=== PATIENT | female | born 1985 | race Two or more races ===

== ENCOUNTER 2022-01-31 21:27 | Emergency (ER) | payer OTHER, SELFPAY ==
--- NOTE | ~2022-01-31 | XR_ITS ---
EXAMINATION: XR WRIST, LEFT CLINICAL INFORMATION: Trauma. Pain. Deformity. COMPARISON: None TECHNIQUE: Four views of the left wrist. FINDINGS: The bones and soft tissues are normal. No fracture. Alignment is anatomic with normal joint spaces. No erosions or abnormal soft tissue calcifications. XR/XR wrist LT min 3V IMPRESSION: Normal left wrist.
--- NOTE | ~2022-01-31 | XR_ITS ---
EXAMINATION: XR HAND, LEFT CLINICAL INFORMATION: Hand injury COMPARISON: Wrist radiographs 01/31/2022 TECHNIQUE: PA, lateral, and oblique views of the left hand. FINDINGS: Osseous alignment is anatomic. No acute fracture is seen. No significant focal soft tissue abnormality identified. XR/XR hand LT 2V IMPRESSION: No acute findings identified.
[2022-01-31 22:01] VITALS: BP 136/73; PULSE 73; RESP 18; TEMP 37.2; O2SAT 99; BMI 35.1
[2022-01-31] MEDS: Ibuprofen 600 MG TABLET PO (22:04)
--- NOTE | 2022-01-31 22:07 | PC.NURSE ---
Jasmyn ring and yellow bracelet removed and placed into a specimen cup/cover. given to patient and placed inside her purse.
--- NOTE | 2022-02-01 01:05 | ED.EXTPRO ---
HPI - Extremity Problem General Chief complaint: Extremity Injury, Upper Stated complaint: left wrist painful and swollen Time Seen by Provider: 02/01/22 01:04 Source: patient Mode of arrival: ambulatory Limitations: no limitations History of Present Illness HPI Narrative: 36-year-old female came in for evaluation of left hand/left wrist pain. Happened at work when she was lifting heavy pocket of ice felt pain initially in the left wrist which is progressively getting worse and spreading to the left hand, patient still able to move the left hand and wrist with pain, patient also noted a small growth over radial side of the left wrist since yesterday. Patient is right hand dominant. Related Data Allergies Allergy/AdvReac Type Severity Reaction Status Date / Time No Known Drug Allergies Allergy Unknown UNKNOWN Verified 01/31/22 22:02 Review of Systems Review of Systems: All other systems are reviewed and are negative Constitutional: Reports as per HPI and Reports no additional constitutional complaints Eyes: Reports as per HPI and Reports no additional eye complaints Reports system reviewed and no additional complaints, except as documented Cardiovascular: Reports as per HPI and Reports no additional cardiovascular complaints Respiratory: Reports as per HPI and Reports no additional respiratory complaints Gastrointestinal: Reports as per HPI and Reports no additional gastrointestinal complaints Genitourinary: Reports no additional female genitourinary complaints Musculoskeletal: Reports no additional musculoskeletal complaints Skin/Breast: Reports system reviewed and no additional complaints, except as docu Psychiatric: Reports no additional psychiatric complaints Endocrine: Reports no additional endocrine complaints Hematologic/Lymphatic: Reports no additional hematologic/lymphatic complaints Allergic/Immunologic: Reports no additional allergic/immunologic complaints Reports system reviewed and no additional complaints, except as documented and Reports Abnormal speech present Physical Exam Vital Signs: Vital Signs: Last Vital Signs Temp 98.9 F 01/31/22 22:01 Pulse 73 01/31/22 22:01 Resp 18 01/31/22 22:01 BP 136/73 01/31/22 22:01 Pulse Ox 99 01/31/22 22:01 O2 Del Method 01/31/22 22:01 BMI result Body Mass Index 35.1 Vital signs have been reviewed as appeared to be correct. Blood pressure normal. Heart rate normal. Respiration rate normal. Temperature normal. Oxygen saturation normal. Appearance: Alert. Oriented X3. No acute distress. Head: Normal external exam. Normocephalic. Atraumatic. No Thayer signs noted. No raccoon eyes noted Eyes: PERRLA. EOMI. Conjunctiva and sclera normal. Eyelids normal. ENT: TM's Normal. Pharynx normal. Uvula midline. Moist mucous membranes. No trismus noted. No drooling noted. No muffled voice noted. Neck: Normal inspection. Neck supple. FROM. No adenopathy. Thyroid Normal. No meningeal signs. No neck mass noted. CVS: Normal heart rate and rhythm. Heart sound normal. No murmurs noted. Pulses normal throughout. Respiratory: No respiratory distress. Painless inspiration. Breath sounds normal. No wheezes/rales/rhonchi noted. Chest nontender. No accessory muscle usage noted or decreased air movement noted. Abdomen: Soft and nontender. Bowel sounds normal in all 4 quadrants. No distention noted. No organomegaly noted. No visible injury noted. Back: No CVA tenderness. Full range of motion noted. Skin: Skin warm and dry. Normal skin color. Normal skin turgor. No rashes/lesions/lacerations noted. Extremities: 2 x 2 cm bony firm mass on dorsum aspect of the radial side of the left wrist, mildly tender to touch, no deformity, normal radial pulse. Neuro: Oriented X 3. Cranial nerve exam: II-XII are grossly intact No motor deficit. No sensory deficit. Reflexes normal. Course Course Course Narrative: 36-year-old female came in with left wrist/left hand pain after injury at work. No acute fracture on the x-ray, 2 x 2 small bony structure felt at the dorsum and radial aspect of the left wrist which may represent ganglion cyst. Ice, NSAIDs, follow-up with hand surgeon. Discharge Plan Discharge Clinical Impression: Contusion of hand, left Patient Disposition: Home, Self-Care Instructions: Contusion in Adults (ED) Referrals: Sue Gonzalez MD [Physician] - Stand Alone Forms: Work/School Release
== END 2022-02-01 04:28 | disposition home or self-care (01) ==
PROVIDERS: Emergency Provider Emergency Medicine
DX: S60.222A Contusion of left hand, initial encounter (principal); M25.532 Pain in left wrist; X50.0XXA Overexertion from strenuous movement or load, initial encounter; Y93.9 Activity, unspecified; Y92.9 Unspecified place or not applicable; Y99.0 Civilian activity done for income or pay
CPT/HCPCS: 73110; 73120; 99283

== ENCOUNTER → 2022-03-07 13:52 | Outpatient (BNVA) | payer OTHER, SELFPAY | PROVIDERS: Visit Provider Orthopaedic Surgery | DX: M65.4 Radial styloid tenosynovitis [de Quervain] (principal); M67.432 Ganglion, left wrist | CPT/HCPCS: 20550; 99202; J1100 ==

== ENCOUNTER 2022-04-17 14:02 | Outpatient (REF) | payer OTHER, SELFPAY ==
--- NOTE | ~2022-04-17 | XR_ITS ---
EXAMINATION: XR WRIST, LEFT CLINICAL INFORMATION: Left wrist pain. COMPARISON: 04/02/2022 TECHNIQUE: PA, lateral, and oblique views of the left wrist. FINDINGS: There is no evidence of acute fracture or dislocation of the left wrist. Left wrist joint spaces are maintained. About the radial soft tissues of the distal radius, there appears be a circumscribed 1.7 x 1.2 cm soft tissue density with no adjacent bony abnormality appreciated. If clinically indicated, ultrasound examination may be of help in further evaluation. XR/XR wrist LT min 3V IMPRESSION: No bony abnormality of the left wrist identified. Soft tissue density radial aspect for which ultrasound would be of help in further evaluation.
== END 2022-04-17 14:03 | disposition home or self-care (01) ==
LOC: HO.HOSX 14:02
PROVIDERS: Visit Provider Orthopaedic Surgery
DX: M25.532 Pain in left wrist (principal)
CPT/HCPCS: 73110

== ENCOUNTER → 2022-04-18 11:12 | Outpatient (BNVA) | payer OTHER, SELFPAY | PROVIDERS: Visit Provider Orthopaedic Surgery | DX: M25.532 Pain in left wrist (principal); M65.4 Radial styloid tenosynovitis [de Quervain]; M67.432 Ganglion, left wrist | CPT/HCPCS: 99212 ==

== ENCOUNTER 2022-04-22 09:14 | Emergency (ER) | payer OTHER, SELFPAY ==
[2022-04-22 09:43] VITALS: BP 122/79; PULSE 67; RESP 18; TEMP 35.8; O2SAT 98; BMI 36.7
[2022-04-22] MEDS: Ibuprofen 600 MG TABLET PO (09:51)
--- NOTE | 2022-04-22 11:21 | ED_ITS ---
HPI - General Adult General Chief complaint: General Medical Stated complaint: lower back pain Time Seen by Provider: 04/22/22 11:02 Source: patient Mode of arrival: ambulatory Limitations: no limitations History of Present Illness HPI narrative: 36 yo female w/ no significant PMHx presenting w/ a 4 day hx of pain in the left lower back. She states that she woke up w/ the pain on morning w/o recollection of any inciting injury or event. She states that the pain feels dull and constant in the left gluteal region that gets worse w/ twist, squatting, bending, and sitting down. She has tried ibuprofen and Tylenol w/o relief of symptoms. She denies any recent or prior injury, trauma, or surgery to this area. She denies any radiation of pain down her leg or up into her back. She denies other symptoms recent fevers, chills, abd pain, N/V/D, changes in bowel or bladder function, headache, neck pain, chest pain, SOB, lightheadedness, or dizziness. She endorses occasional use of marijuana but denies other drug or alcohol use. Onset (ago): day(s) (4) Location: buttocks (left gluteal region) Radiation: non-radiation Severity: mild Severity scale (1-10): 2 Quality: aching and dull Pain Consistency: constant Relieving factors: none Associated symptoms: denies other symptoms Treatments prior to arrival: other (Tylenol) Related Data Home Medications Medication Instructions Recorded Confirmed No Known Home Meds 03/07/22 03/07/22 Allergies Allergy/AdvReac Type Severity Reaction Status Date / Time No Known Drug Allergies Allergy Unknown UNKNOWN Verified 04/18/22 11:47 Review of Systems Review of Systems: Constitutional: No Weight loss, No Fever, No Chills, No Headaches, No dizziness, No lightheadedness ENT/Mouth: No Ear Pain, No Nasal Congestion, No sore throat Cardiovascular: No Chest Pain, No SOB Respiratory: No Cough, No difficulty breathing Gastrointestinal: No Nausea, No Vomiting, No Diarrhea, No Constipation, No Abdominal pain, No loss of bowel control Genitourinary: No Dysuria, No Urinary Frequency, No Hematuria, No Urinary Incontinence/retention, No Urgency, No Flank Pain Musculoskeletal: No joint pain, No Myalgias, No Joint Swelling, + Left gluteal pain as per HPI Skin: No Skin Lesions, No rash Neuro: No Weakness, No Numbness, No Paresthesias Yes all other systems are reviewed and are negative Constitutional: Constitutional: Reports as per HPI Neurologic: Denies Sensory deficit (Neuro) [facility] Past Medical History Attestation statement: The following information was validated with the patient. Social History Social History Alcohol intake: never Smoked in Last 30 Days: No Substance Use Type: Marijuana Advance Directives: No Advance Directives Information Provided: No Patient : No Current occupational status: employed Current occupation: right hand, [email or web address] Physical Exam ED Vital Signs: Vital Signs - 24 hr 04/22/22 09:43 Temperature 96.5 F L Pulse Rate 67 Respiratory Rate 18 Blood Pressure 122/79 Pulse Oximetry 98 Oxygen Delivery Method Room Air BMI result Body Mass Index 36.7 Const Other: in pain General: cooperative, healthy appearing and anxious Orientation/consciousness: patient oriented x3 Limitations: no limitations HENMT Head: Yes normal to inspection and Yes atraumatic Ears: hearing grossly normal bilaterally Eyes General: appearance normal, both eyes and all related structures Neck Neck: Yes normal visual inspection and Yes no meningeal signs Resp Effort & Inspection: normal respiratory effort, able to speak in complete sentences, normal respiratory pattern, no audible wheezes, no cough and no respiratory distress Auscultation: clear to auscultation bilaterally Cardio Rate: regular rate Heart sounds: S1 normal heart sound present and S2 normal heart sound present GI Inspection: Yes normal to inspection Palpation (GI): Soft to palpation, not firm, nontender, no guarding, not rigid and no masses General: Yes bladder normal to palpation and Yes no CVA tenderness Bimanual exam- vagina & uterus: bladder normal to palpation Back/Spine/Pelvis Back: no CVA tenderness, No mass, No erythema, No warmth, No sacral edema, No ecchymosis and No back tenderness Cervical Spine: No cervical muscular tenderness and No Cervical spine tenderness Thoracic/Lumbar Spine: No paraspinal muscle tenderness and No lumbar spinal tenderness Sacrum: no ecchymosis, no erythema, no swelling and no tenderness Coccyx: no swelling and no tenderness Skin General skin exam: no rashes or lesions noted Rashes: no rashes Wounds: no wounds Neuro General: patient oriented x3, gait normal, tone normal and no meningeal signs Gait exam (Neuro): Normal gait present Motor exam (neuro): 5/5 motor strength present throughout Sensory Exam: No Sensory deficit (Neuro) Extrem General: Yes normal to inspection and Yes full ROM (painful flexion/extension of hip) Right upper extremity: normal to inspection Left upper extremity: normal to inspection Right lower extremity: normal to inspection Left lower extremity: normal to inspection and hip/thigh Details: normal to inspection and tenderness (tenderness over left gluteal/lateral hip region); no swelling, no abrasions, no lacerations, no ecchymosis and no crepitus Course Course Course Narrative: > 1330--patient reports symptomatic improvement after medications given in the ED. Still reports some continued pain, will give oxycodone and plan for discharge. Results discussed with patient including worrisome signs and symptoms and strict return precautions, and when to return to the emergency department. They verbalized understanding and feel safe for discharge at this time. Medications Administered Discontinued Medications Generic Name Dose Route Start Last Admin Trade Name Twin PRN Reason Stop Dose Admin Acetaminophen 650 mg 04/22/22 11:42 04/22/22 12:00 Acetaminophen 325 Mg Tablet PO 04/22/22 11:43 650 mg ONCE ONE Administration Cyclobenzaprine HCl 10 mg 04/22/22 11:41 04/22/22 12:00 Cyclobenzaprine Hcl 10 Mg Tablet PO 04/22/22 11:42 10 mg ONCE ONE Administration Ibuprofen 600 mg 04/22/22 09:48 04/22/22 09:51 Ibuprofen 600 Mg Tablet PO 04/22/22 09:49 600 mg ONCE ONE Administration Lidocaine 1 patch 04/22/22 11:41 04/22/22 12:00 Lidocaine 4 % Patch Adh..Patch TRANSDERMA 04/22/22 11:42 1 patch ONCE ONE Administration Protocol Oxycodone HCl 5 mg 04/22/22 13:27 04/22/22 13:33 Oxycodone Hcl Immed Release 5 Mg Tablet PO 04/22/22 13:28 5 mg ONCE ONE Administration Medical Decision Making [facility] Narrative Medical decision making narrative: 36 yo female w/ no significant PMHx presenting w/ a 4 day hx of atraumatic pain in the left lower back. On exam vital signs stable, appears in pain, anxious, tearful, no midline spinous tenderness throughout or red flag symptoms. + tenderness to palpation to left gluteal region. No saddle anesthesia. Ambulating with pain/steady gait. Concern for MSK pain/strain vs muscle spasming. Low suspicion for fracture, cauda equina, cord compression, epidural abscess or renal stone/pyelo Plan: Ibuprofen given in triage, p.o. Flexeril, Lidoderm patch, re-evaluate Medical Records Medical records reviewed: Yes I reviewed the patient's medical records. Lab Data Lab results reviewed: Yes I reviewed the patient's lab results. Discharge Plan Discharge Clinical Impression: Low back pain Patient Disposition: Home, Self-Care Prescriptions: No Action No Known Home Meds
[2022-04-22] MEDS: Lidocaine 4 % Patch ADH..PATCH 1 PATCH TRANSDERMA (12:00)
[2022-04-22] MEDS: Cyclobenzaprine HCl 10 MG TABLET PO (12:00)
[2022-04-22] MEDS: Acetaminophen 325 MG TABLET 650 MG PO (12:00)
--- NOTE | 2022-04-22 12:07 | PC.NURSE ---
patient a/ox4 . dmitrya . heart rate regular at 70 beats per minute . breathing even an unlabored . lungs clear throughout . skin pink warm and dry patient reports lower left back pain 8 out of 10 , no bruising or trauma noted . patient medicated as ordered by provider . lidocaine patch applied to left lower back . patient aware of plan of care .
[2022-04-22] MEDS: oxyCODONE HCl Immed Release 5 MG TABLET PO (13:33)
== END 2022-04-22 14:23 | disposition home or self-care (01) ==
PROVIDERS: Emergency Provider Emergency Medicine
DX: M54.50 Low back pain, unspecified (principal)
CPT/HCPCS: 96372; 99284

== ENCOUNTER → 2022-05-30 10:26 | Outpatient (BNVA) | payer OTHER, SELFPAY | PROVIDERS: Visit Provider Orthopaedic Surgery | DX: M65.4 Radial styloid tenosynovitis [de Quervain] (principal); M67.432 Ganglion, left wrist | CPT/HCPCS: 99212 ==

== ENCOUNTER 2022-06-18 05:47 | Day surgery (SDC) | payer OTHER, SELFPAY ==
[2022-06-12 13:53] VITALS: BMI 36.7
[2022-06-18 06:10] VITALS: BP 111/66; PULSE 67; RESP 16; TEMP 36.2; O2SAT 97
--- NOTE | 2022-06-18 07:19 | HO.ANESPROP2 ---
HPI - Anesthesia Eval Consult details Narrative: Lleft wrist gg cyst PMFSH Active Problems Active Problems: All Active Problems (Updated 06/12/22 @ 13:41 by Clarisa Ma, RN) De Quervain's tenosynovitis, left (Acute) Ganglion cyst of volar aspect of left wrist (Acute) Past Medical History Medical History (Updated 06/12/22 @ 13:41 by Clarisa Ma, RN) Asthma Functional capacity: independent ambulation Family History Family history of problems with anesthesia: No Surgical History Surgical History (Updated 06/12/22 @ 13:41 by Clarisa Ma, PAUL) History of bilateral tubal ligation Hx of section History of Problems with Anesthesia: No Social History Social History Alcohol intake: never Patient Tobacco Use Status: Never used Tobacco Second Hand Smoke Exposure: No Use of substances other than those prescribed or required for medical reasons: Yes Substance Use Type: Marijuana Substance Use Frequency: Occasionally Are you DNR?: No Advance Directives: No Advance Directives Information Provided: Yes Advance Directives on File: No Current occupational status: employed Current occupation: right hand, [employer] maker Meds Allergies Allergy/AdvReac Type Severity Reaction Status Date / Time No Known Drug Allergies Allergy Unknown UNKNOWN Verified 06/12/22 13:42 Exam Exam Date and Time: June 18, 2022 0719 Height,Weight and Vital Signs: Height 5 ft 2 in Weight 91.172 kg Last Vital Signs Temp 97.1 F 06/18/22 06:10 Pulse 67 06/18/22 06:10 Resp 16 06/18/22 06:10 BP 111/66 06/18/22 06:10 Pulse Ox 97 06/18/22 06:10 O2 Del Method 06/18/22 06:10 Airway Mallampati Class: II TM Dist: >3cm Neck ROM: Full Heart: rrr Lungs: cta Assessment and Plan Assessment Anesthesia Assessment: Anesthesia Plan Discussed Final Anesthetic Review Family History of Problems with Anesthesia: No History of Problems with Anesthesia: No NPO: Yes ASA Class: II Final Preanesthetic Review: No Changes in Pt Med Stat, Meds/Allgs Chart Reviewed, Consent Obtained/Reviewed and Anes Risks/Benef Reviewed Patient Risk: Low Procedure Risk: Low Anesthetic Plan Anesthetic Plan: GA and Agree w/ Assess. and Plan Disposition: Standard PACU
--- NOTE | 2022-06-18 07:49 | P.OP_ITS ---
Operative Note Operative Note Date of Service: 06/18/22 Narrative: Operative Note Narrative: Preop diagnosis: 1. left Volar wrist ganglion 2. Left de Quervain tenosynovitis Postop diagnosis: Same Procedure: 1. left Volar wrist ganglion excision 2. Left 1st dorsal compartment release 3. Dissection and mobilization of the radial artery off of the volar wrist ganglion. Surgeon: Sue Gonzalez MD Anesthesia: General Anesthesia Findings: volar wrist ganglion. EPB tendon in its own compartment Implants: None Tourniquet time: 28 minutes EBL: 5.0 ml Specimen: Volar wrist ganglion Drains: None Complications: None Disposition: Brought to the recovery room in stable condition Plan: Follow-up in 10-14 days for wound check, suture removal and to check pathology Indications: The patient is 36 years old with left de Quervain tenosynov itis and left volar wrist ganglion . The risks and benefits of operative treatment, including but not limited to risk of damage to blood vessels, nerves, tendons, infection, recurrence, persistent pain or numbness, incomplete resolution of preoperative symptoms, or need for further surgery were discussed with the patient and they wished to proceed with surgery. Procedure: Once consent was obtained patient was brought back to the operating suite and placed in the operating table in a supine position. Perioperative antibiotics and anesthesia was administered by the anesthesia team. A kezia rniquet was applied to the proximal aspect of the left upper extremity and the limb was prepped and draped in a standard surgical fashion. The limb was elevated exsanguinated with Esmarch bandage and the tourniquet inflated to 250 mm of mercury for a total tourniquet time of 28 minutes. A 3 cm longitudinal incision was made beginning at the radial styloid extending proximally between the 1st dorsal compartment and the volar wrist ganglion.. The incision was made through the skin the subcutaneous tissues using a 15. Blade. Careful dissection was then made down to the level of the volar wrist ganglion using tenotomy scissors. Care was taken to protect the branches of the superficial radial nerve as I dissected dorsally to expose the 1st dorsal compartment as well. Bipolar electrocautery was utilized to cauterize several of the small arterial branches from about the ganglion. The radial artery was noted to be passing across the ulnar aspect of the ganglion. The radial artery was carefully dissected off of the ganglion and then protected during the case. This was all done using tenotomy and iris scissors. The stalk to the ganglion was then isolated and cauterized using bipolar electrocautery. The ganglion was then removed and placed on the back table to be sent for histopathology. It contained clear viscous fluid consistent with a ganglion. Attention was then turned to the 1st dorsal compartment. I made a longitudinal incision in the 1st dorsal compartment using a 15. Blade and tenotomy scissors under direct visualization. The extensor pollicis brevis t endon was noted to have a separate compartment and this was also incised longitudinally using tenotomy scissors. The tendons themselves appear to be in good condition. Tendons were noted to remain within the 1st dorsal compartment with wrist range of motion. At this point the tourniquet was deflated and hemostasis obtained with a brief period of local pressure and bipolar electrocautery. The wound was copiously irrigated with normal saline. The subcutaneous layer was closed with 4-0 Vicryl suture, and the skin edges were reapproximated with 5-0 nylon suture. The wound was infiltrated with some 0.5% plain ropivacaine for postop pain control and a sterile dressing was applied. The patient appears to have tolerated the procedure well and with no complications. All digits were well vascularized conclusion of the case.
--- NOTE | 2022-06-18 07:49 | MHC.SHP ---
Pre-Procedural Eval Section A Date of Service: 06/18/22 The patient is an INPATIENT: No Changes since office visit: No Cold of Flu in the past 2 weeks, No New Medical Problems, No Changes in Medication and No Patient answered all questions The History & Physical has been completed within 30 days and I have reviewed it.: Yes Section B Chief Complaint: Ganglion, left wrist,Radial styloid tenosynovitis Allergies: Allergies Allergy/AdvReac Type Severity Reaction Status Date / Time No Known Drug Allergies Allergy Unknown UNKNOWN Verified 06/12/22 13:42 Plan I have reviewed the history and physical and performed a pertinent physical examination on my patient. No changes have occurred unless specified. Time Spent With Patient Time: Total time managing care of this patient today ____ minutes.
[2022-06-18 09:00] VITALS: BP 105/74; PULSE 83; RESP 16; TEMP 36.3; O2SAT 93
[2022-06-18 09:05] VITALS: BP 101/55; PULSE 79; RESP 16; O2SAT 95
[2022-06-18 09:10] VITALS: BP 105/74; PULSE 73; RESP 16; O2SAT 96
[2022-06-18 09:15] VITALS: BP 113/72; PULSE 66; RESP 16; O2SAT 96
[2022-06-18 09:30] VITALS: BP 121/76; PULSE 63; RESP 16; TEMP 36.6; O2SAT 98
== END 2022-06-18 10:27 | disposition home or self-care (01) ==
PROVIDERS: Visit Provider Orthopaedic Surgery
PROC: (CPT 25000; principal; 2022-06-18 07:30)
PROC: (CPT 25000; 2022-06-18 07:30)
DX: M65.4 Radial styloid tenosynovitis [de Quervain] (principal); M67.432 Ganglion, left wrist; S69.82XA Other specified injuries of left wrist, hand and finger(s), initial encounter; X50.0XXA Overexertion from strenuous movement or load, initial encounter; X50.9XXA Other and unspecified overexertion or strenuous movements or postures, initial encounter; Y92.69 Other specified industrial and construction area as the place of occurrence of the external cause; Y99.0 Civilian activity done for income or pay; J45.909 Unspecified asthma, uncomplicated; F12.90 Cannabis use, unspecified, uncomplicated
CPT/HCPCS: 25000; 25111; 88304; J0690; J1100; J1885; J2405; J2795

== ENCOUNTER → 2022-07-03 09:12 | Outpatient (BNVA) | payer OTHER, SELFPAY | PROVIDERS: Visit Provider Orthopaedic Surgery | DX: Z13.89 Encounter for screening for other disorder (principal) ==

== ENCOUNTER → 2022-08-14 13:07 | Outpatient (BNVA) | payer OTHER, SELFPAY | PROVIDERS: Visit Provider Orthopaedic Surgery | DX: Z13.89 Encounter for screening for other disorder (principal) ==

== ENCOUNTER 2022-08-28 21:41 | Emergency (ER) | payer OTHER, SELFPAY ==
[2022-08-28 21:43] VITALS: BP 128/86; PULSE 83; RESP 16; TEMP 36.2; O2SAT 99; BMI 34.2
--- NOTE | 2022-08-28 23:09 | ED_ITS ---
HPI - General Adult General Chief complaint: Dental/Oral Stated complaint: Dental pain Time Seen by Provider: 08/28/22 22:56 Source: patient, RN notes reviewed and old records reviewed Mode of arrival: ambulatory Limitations: no limitations History of Present Illness HPI narrative: 36-year-old female presents for evaluation of left facial pain. She reports that she has had pain in the area for a few weeks now. She saw her dentist last week and was told that she has a cleaning and x-rays before they can do any procedures She reports that she is due to have a left upper molar removed on 09/07/22 She states that for the last few hours she has had tenderness 10 stabbing pain to the left upper jaw/face radiating to her left ear Denies any fevers, difficulty swallowing Related Data Previous Rx's Medication Instructions Recorded lidocaine 5 % topical patch 1 patch topical DAILY PRN pain #30 04/22/22 (Lidoderm) ea naproxen 500 mg tablet 500 mg PO BID PRN pain 10 days #20 04/22/22 tabs amoxicillin 500 mg capsule 500 mg PO TID #21 caps 08/28/22 oxycodone 5 mg tablet 5 mg PO Q6H PRN severe pain (scale 08/28/22 score 7-10) #14 tabs Allergies Allergy/AdvReac Type Severity Reaction Status Date / Time No Known Drug Allergies Allergy Unknown UNKNOWN Verified 08/28/22 21:43 Review of Systems Constitutional: Constitutional: Reports as per HPI, Denies chills and Denies fever(s) ENT: Reports mouth pain Respiratory: Respiratory: Denies cough PMFSH Past Medical History Medical History Asthma Surgical History History of bilateral tubal ligation Hx of section Social History Social History Alcohol intake: never Patient Tobacco Use Status: Never used Tobacco Second Hand Smoke Exposure: No Substance Use Type: Marijuana Advance Directives: No Advance Directives Information Provided: No Current occupational status: employed Current occupation: right hand, [employer] Physical Exam ED Vital Signs: Vital Signs - 24 hr 08/28/22 21:43 Temperature 97.1 F Pulse Rate 83 Respiratory Rate 16 Blood Pressure 128/86 Pulse Oximetry 99 Oxygen Delivery Method Room Air BMI result Body Mass Index 34.2 Const General: healthy appearing, comfortable, no acute distress, alert and awake Nutritional Appearance: well nourished Orientation/consciousness: patient oriented x3 HENMT Other: No periodontal abscess Head: Yes normocephalic and Yes atraumatic Ears: TM normal on the left Teeth and gingiva: abnormal dentition (Tooth 14. With fracture and decay, minimal surrounding erythema. ) Throat: Yes posterior oropharynx normal Eyes Eyelids: Yes eyelids normal Conjunctivae: conjunctivae normal Sclerae: sclerae normal Corneas: corneas normal Pupils: Equal, round and reactive pupils present EOM: EOMs intact bilaterally Neck Neck: Yes full ROM Resp Effort & Inspection: normal respiratory effort, able to speak in complete sentences, no audible wheezes and not labored Auscultation: clear to auscultation bilaterally Cardio Rate: regular rate Rhythm: regular rhythm GI Inspection: No distended Palpation (GI): Soft to palpation, not firm, nontender, no guarding and not rigid Auscultation: normoactive bowel sounds Skin General skin exam: no rashes or lesions noted and elasticity normal Neuro General: patient oriented x3 Cranial nerves: Yes CN's II-XII intact bilaterally, Yes Equal, round and reactive pupils present and Yes Bilaterally intact EOM present Cognition (Neuro): normal cognition Extrem Other: Moving all extremities well without any obvious deformities Medical Decision Making Medical Decision Making MDM Narrative: Patient has dental caries with likely developing infection of the left upper draw, tooth 14. She has appropriate dental follow-up. We will treat with amoxicillin and oxycodone and she will try to get her dentist appointment e xpedited. Differential Diagnosis Atypical facial pain Dental pain Dental caries Dental abscess Otitis media Discharge Plan Discharge Clinical Impression: Atypical face pain Patient Disposition: Home, Self-Care Instructions: Toothache (ED) Additional Instructions: You may continue to use Tylenol for pain. Use oxycodone for severe breakthrough pain. This may make you sleepy, did not drink alcohol or drive after taking Take amoxicillin 3 times daily for the next 7 days. Call your dentist to schedule follow-up Prescriptions: New amoxicillin 500 mg capsule 500 mg PO TID Qty: 21 0RF oxycodone 5 mg tablet 5 mg PO Q6H PRN (Reason: severe pain (scale score 7-10)) Qty: 14 0RF Rx Instructions: Partial Fill upon patient request. No Action lidocaine [Lidoderm] 5 % adhesive patch,medicated 1 patch topical DAILY MDD remove after 12 hours PRN (Reason: pain) Qty: 30 0RF Rx Instructions: leave on most painful area for up to 12 hrs naproxen 500 mg tablet 500 mg PO BID PRN (Reason: pain) 10 Days Qty: 20 0RF
[2022-08-28 23:36] VITALS: BP 127/85; PULSE 69; RESP 17; TEMP 36.4; O2SAT 96
[2022-08-28] MEDS: oxyCODONE HCl Immed Release 5 MG TABLET 10 MG PO (23:45)
[2022-08-28] MEDS: Amoxicillin 500 MG CAPSULE PO (23:45)
== END 2022-08-28 23:47 | disposition home or self-care (01) ==
PROVIDERS: Emergency Provider Student in an Organized Health Care Education/Training Program; PCP Internal Medicine
DX: G50.1 Atypical facial pain (principal); K08.89 Other specified disorders of teeth and supporting structures; K02.9 Dental caries, unspecified; F12.90 Cannabis use, unspecified, uncomplicated
CPT/HCPCS: 99283; 99284

== ENCOUNTER 2023-05-22 10:47 | Emergency (ER) | payer OTHER, SELFPAY ==
--- NOTE | 2023-05-22 10:50 | ECG_ITS ---
Test Reason : cp Blood Pressure : / mmHG Vent. Rate : 093 BPM Atrial Rate : 093 BPM P-R Int : 142 ms QRS Dur : 076 ms QT Int : 356 ms P-R-T Axes : 043 021 029 degrees QTc Int : 442 ms Normal sinus rhythm Normal ECG No previous ECGs available Referred By: Generic ED Physician Electronically Signed By:JUAN MARTINEZ
[2023-05-22 10:58] VITALS: BP 122/75; PULSE 94; RESP 18; TEMP 36.8; O2SAT 98; BMI 35.0
--- NOTE | 2023-05-22 11:20 | ED_ITS ---
HPI - URI/Sore Throat General Chief Complaint: Upper Respiratory Symptoms Stated Complaint: Chest pain Time Seen by Provider: 05/22/23 11:20 Source: patient Mode of arrival: ambulatory Limitations: no limitations History of Present Illness HPI Narrative: ??This is a 37 year-old female hx asthma presenting with fatigue, malaise, myalgias, congestion, chest pressure/ discomfort w/ cough , productive cough, nausea, times a few days worsening. Multiple sick contacts at home, or now feeling better.? Reports still eating and drinking.? No, shortness of breath, abdominal pain, vision changes, dizziness or weakness. Related Data Previous Rx's Medication Instructions Recorded lidocaine 5 % topical patch 1 patch topical DAILY PRN pain #30 04/22/22 (Lidoderm) ea naproxen 500 mg tablet 500 mg PO BID PRN pain 10 days #20 04/22/22 tabs amoxicillin 500 mg capsule 500 mg PO TID #21 caps 08/28/22 oxycodone 5 mg tablet 5 mg PO Q6H PRN severe pain (scale 08/28/22 score 7-10) #14 tabs albuterol sulfate 90 mcg/actuation 2 inh inhalation Q4-6H PRN 05/22/23 breath activated powder inhaler shortness of breath or wheezing #1 ea Allergies Allergy/AdvReac Type Severity Reaction Status Date / Time No Known Drug Allergies Allergy Unknown UNKNOWN Verified 08/28/22 21:43 Review of Systems Review of Systems: Constitutional : No Weight loss, No Fever, No Chills, + Fatigue, + Malaise ENT/Mouth : No sore throat, No Rhinorrhea Eyes: No Eye Pain, No Swelling, No Redness Cardiovascular : No Chest Pain, No SOB, No Dyspnea on Exertion, No Orthopnea, No Edema, No Palpitations Respiratory : + Cough, + Sputum, No Wheezing Gastrointestinal : + Nausea, No Vomiting, No Diarrhea, No Constipation, No abdominal Pain, No Hematochezia, No Melena Genitourinary : No Dysuria, No Urinary Frequency, No Hematuria, Musculoskeletal : No joint pain, + Myalgias, No Joint Swelling Skin : No Skin Lesions, No rash Neuro : No Weakness, No Numbness, No Dizziness, No Headache Psych : No Anxiety/Panic, No Depression All other systems reviewed and are negative Yes all other systems are reviewed and are negative [facility] Past Medical History Attestation statement: The following information was validated with the patient. Source: old records reviewed and nursing notes reviewed Medical History Asthma Surgical History History of bilateral tubal ligation Hx of section Social History Social History Alcohol intake: never Patient Tobacco Use Status: Never used Tobacco Second Hand Smoke Exposure: No Substance Use Type: Marijuana Current occupational status: employed Current occupation: right hand, [employer] Physical Exam Vital Signs: Vital Signs: Last Vital Signs Temp 98.2 F 05/22/23 10:58 Pulse 94 05/22/23 10:58 Resp 18 05/22/23 10:58 BP 122/75 05/22/23 10:58 Pulse Ox 98 05/22/23 10:58 O2 Del Method Room Air 05/22/23 10:58 BMI result Body Mass Index 35.0 vss Appearance: Alert.? Oriented X3.? No acute distress.? Head: Normocephalic, atraumatic, no step-offs or deformities Eyes: Pupils equal, round and reactive to light.? ENT: Pharynx normal.? Neck: Normal inspection.? Neck supple.? CVS: Normal heart rate and rhythm.? Pulses normal.? Respiratory: No respiratory distress.? Breath sounds normal.? Abdomen: Soft and nontender.? Skin: Skin warm and dry.? Normal skin color.? Normal skin turgor.? Extremities: No lower extremity edema.? No calf ttp. 5/5 strength to bilateral upper and lower extremities Neuro: Oriented X 3.? No motor deficit.? No sensory deficit. CN 2-12 intact Course Reevaluation(s) Reevaluation #1: Patient positive for influenza. Symptoms ongoing for greater than 48 hours no indication for Tamiflu. Educated patient on diagnosis and treatment plan, answered all question, patient verbalizes understanding. At this time patient will be discharged home, advised to return with new or worsening symptoms. Educated on worrisome signs and symptoms and when to return. At this time I feel comfortable discharge home. Time: 11:39 Medical Decision Making Medical Decision Making [facility] Narrative: ??37-year-old female presenting with viral symptoms ongoing for the past few days. ??Physical examination benign ?This is likely flu versus COVID versus RSV versus other viral illness? Versus bronchitis.? Unlikely pneumonia, PE, ACS, respiratory distress. Plan- viral test?, EKG Differential Diagnosis Differential Diagnoses: The differential diagnosis associated with the presentation includes ?This is likely flu versus COVID versus RSV versus other viral illness? Versus bronchitis.? Unlikely pneumonia, PE, ACS, respiratory distress. Admission/Observation Consideration of admission/observation: Escalation of care including admission/observation considered Unlikely Lab Data Labs: Lab Results 05/22/23 Range/Units 11:11 COVID-19 (BENJAMÍN) Negative (Negative) COVID-19 Clin Com See Note Influenza Type A (RAYNE) Positive A (Negative) Influenza Type B (RAYNE) Negative (Negative) Influenza A & B Note See Note S. pyogenes GrpA RAYNE Negative (Negative) Independent Interpretation I performed an independent interpretation of an: EKG (Ventricular rate of 93, WI normal, QRS normal, QT/QTC normal. EKG normal sinus rhythm no ST elevations or inversions concerning for acute ischemia) Radiology Impression Discussion of test interpretation with radiology: I have reviewed the radiologist's reading. Critical Care Time Critical Care Time Critical Care Time: No Discharge Plan Discharge Clinical Impression: Viral infection, Influenza Patient Disposition: Home, Self-Care Instructions: Viral Syndrome (ED) Additional Instructions: Take your medications as prescribed. If you were prescribed antibiotics today, it is important that you take your medication to their entirety, do not skip any doses, do not finish them early. Follow-up with your primary care provider this week. Return to the emergency department with new or worsening symptoms. Such as feve rs, chills, chest pain, shortness of breath, nausea, vomiting, dizziness, headache, vision changes, lethargy In case of emergency call 911 You can take ibuprofen every 6 hours, Tylenol every 4 as needed for fever, pain or discomfort. Prescriptions: New albuterol sulfate 90 mcg/actuation aerosol powdr breath activated 2 inh inhalation Q4-6H PRN (Reason: shortness of breath or wheezing) Qty: 1 0RF No Action lidocaine [Lidoderm] 5 % adhesive patch,medicated 1 patch topical DAILY MDD remove after 12 hours PRN (Reason: pain) Qty: 30 0RF Rx Instructions: leave on most painful area for up to 12 hrs naproxen 500 mg tablet 500 mg PO BID PRN (Reason: pain) 10 Days Qty: 20 0RF amoxicillin 500 mg capsule 500 mg PO TID Qty: 21 0RF oxycodone 5 mg tablet 5 mg PO Q6H PRN (Reason: severe pain (scale score 7-10)) Qty: 14 0RF Rx Instructions: Partial Fill upon patient request. Referrals: Physician,Unknown J [Primary Care Provider] - 1 day
[2023-05-22 11:35] LABS: COVID-19 Test Negative (Negative); IDNOW Serial# 08D9AD1C; IDNOW Serial# 58CA691E; IDNOW Serial# BCCEAD1C; Influenza A Positive (Negative); Influenza B2 Negative (Negative); Strep A Nucleic Acid Negative (Negative)
== END 2023-05-22 11:51 | disposition home or self-care (01) ==
LOC: HO.ED 11:45
PROVIDERS: Emergency Provider Emergency Medicine Emergency Medical Services
DX: J11.1 Influenza due to unidentified influenza virus with other respiratory manifestations (principal); B34.9 Viral infection, unspecified; Z11.52 Encounter for screening for COVID-19
CPT/HCPCS: 87502; 87635; 87651; 93005; 99283; 99284

== ENCOUNTER → 2023-05-22 10:50 | Outpatient (BNV) | payer OTHER, SELFPAY | PROVIDERS: Emergency Provider Emergency Medicine Emergency Medical Services; Visit Provider Internal Medicine | DX: R07.9 Chest pain, unspecified (principal) | CPT/HCPCS: 93010 ==

== ENCOUNTER 2024-06-20 23:21 | Emergency (ER) | payer OTHER, SELFPAY ==
--- NOTE | ~2024-06-20 | XR_ITS ---
CLINICAL HISTORY: left wrist thumb injury 3 view left hand Comparison: CR/SR - XR HAND LT 2V - 02/01/22 01:59 EDT Findings: Bones intact. No dislocations. No significant loss of joint space or osteophytes. No erosions. No radiopaque foreign body. IMPRESSION: 1. No acute findings This document has been electronically signed by: Gage Kline MD on 06/21/2024 00:25:27
[2024-06-20 23:30] VITALS: BP 112/76; PULSE 72; RESP 14; TEMP 36.8; O2SAT 98; BMI 33.6
--- NOTE | 2024-06-21 07:06 | ED.EXTPRO ---
HPI - Extremity Problem General Chief complaint: Extremity Injury, Upper Stated complaint: left wrist pain after surgery Time Seen by Provider: 06/21/24 07:03 Source: patient Mode of arrival: ambulatory Limitations: no limitations History of Present Illness HPI Narrative: This is a 38 years old the female injured the the left wrist at work on Saturday presented complaining of left wrist pain. No other injury MD Complaint: extremity pain (left wrist) Onset (ago): day(s) (5) Pain Consistency: constant Location: left Severity scale (1-10): 4 Quality: aching Radiation: none Relieving factors: nothing Exacerbating factors: range of motion Associated symptoms: denies other symptoms Related Data Previous Rx's ?Medication ?Instructions ?Recorded lidocaine 5 % topical patch 1 patch topical DAILY PRN pain #30 04/22/22 (Lidoderm) ea naproxen 500 mg tablet 500 mg PO BID PRN pain 10 days #20 04/22/22 tabs amoxicillin 500 mg capsule 500 mg PO TID #21 caps 08/28/22 oxycodone 5 mg tablet 5 mg PO Q6H PRN severe pain (scale 08/28/22 score 7-10) #14 tabs albuterol sulfate 90 mcg/actuation 2 inh inhalation Q4-6H PRN 05/22/23 breath activated powder inhaler shortness of breath or wheezing #1 ea naproxen 500 mg tablet (Naprosyn) 500 mg PO BID PRN PAIN #20 tabs 06/21/24 Allergies Allergy/AdvReac Type Severity Reaction Status Date / Time No Known Drug Allergies Allergy Unknown UNKNOWN Verified 06/20/24 23:35 Review of Systems Review of Systems: Yes all other systems are reviewed and are negative [facility] Past Medical History Attestation statement: The following information was validated with the patient. [facility] Narrative: denies,she has hx of left wrist surgery Medical History Asthma Surgical History Hx of section History of bilateral tubal ligation Social History Social History Alcohol intake: never Patient Tobacco Use Status: Never used Tobacco Second Hand Smoke Exposure: No Substance Use Type: Marijuana Advance Directives: No Advance Directives Information Provided: Yes Do you have a plan to hurt others: No Plan Current occupational status: employed Current occupation: right hand, [employer] Physical Exam Vital Signs: Vital Signs: Last Vital Signs Temp 98.2 F 06/20/24 23:30 Pulse 72 06/20/24 23:30 Resp 14 06/20/24 23:30 BP 112/76 06/20/24 23:30 Pulse Ox 98 06/20/24 23:30 O2 Del Method Room Air 06/20/24 23:30 BMI result Body Mass Index 33.6 She looks well she is not toxic-appearing Const: General: cooperative Nutritional Appearance: average body habitus Orientation/consciousness: patient oriented x3 Limitations: no limitations HEENT: Head: Yes normal to inspection Ears: hearing grossly normal bilaterally General nose exam: Normal external nose present Face and sinus: Yes normal facial exam Mouth: Normal oral and palatal mucosa present Throat: Yes posterior oropharynx normal Neck: Neck: Yes normal visual inspection and Yes full ROM Chest: Chest palpation & inspection: normal inspection of the chest Resp: Effort & Inspection: normal respiratory effort Auscultation: clear to auscultation bilaterally Cardio: Jugular venous distension: no JVD Rate: regular rate Rhythm: regular rhythm GI: Inspection: Yes normal to inspection Palpation (GI): Soft to palpation, not firm, nontender and no guarding Percussion: Yes normal to percussion Skin: General skin exam: no rashes or lesions noted and elasticity normal Lesions: no lesions Rashes: no rashes Neuro: General: patient oriented x3 Extrem: Other: There is tenderness in the left wrist joint decreased range of motion good perfusion no deformity Medical Decision Making Medical Decision Making MDM Narrative: Patient presented to the emergency room complaining of left wrist pain after an injury we will obtain x-ray Differential Diagnosis Differential Diagnoses: The differential diagnosis associated with the presentation includes Fracture/dislocations /sprain Independent Interpretation I performed an independent interpretation of an: Plain X-Ray Interpretation: No fracture Radiology Impression Discussion of test interpretation with radiology: I have reviewed the radiologist's reading. Radiologist Impression: No fracture Discharge Plan Discharge Clinical Impression: Left wrist sprain Qualifiers: Encounter type: initial encounter Qualified Code(s): S63.502A - Unspecified sprain of left wrist, initial encounter Patient Disposition: Home, Self-Care Instructions: Wrist Injury (ED) Additional Instructions: Follow-up with your orthopedist take naproxen as directed return if worse Prescriptions: New naproxen [Naprosyn] 500 mg tablet 500 mg PO BID PRN (Reason: PAIN) Qty: 20 0RF No Action lidocaine [Lidoderm] 5 % adhesive patch,medicated 1 patch topical DAILY MDD remove after 12 hours PRN (Reason: pain) Qty: 30 0RF Rx Instructions: leave on most painful area for up to 12 hrs naproxen 500 mg tablet 500 mg PO BID PRN (Reason: pain) 10 Days Qty: 20 0RF amoxicillin 500 mg capsule 500 mg PO TID Qty: 21 0RF oxycodone 5 mg tablet 5 mg PO Q6H PRN (Reason: severe pain (scale score 7-10)) Qty: 14 0RF Rx Instructions: Partial Fill upon patient request. albuterol sulfate 90 mcg/actuation aerosol powdr breath activated 2 inh inhalation Q4-6H PRN (Reason: shortness of breath or wheezing) Qty: 1 0RF Stand Alone Forms: Work/School Release Print Language: Slovenian
[2024-06-21 08:01] VITALS: BP 112/76; PULSE 72; RESP 14; TEMP 36.8; O2SAT 98
== END 2024-06-21 08:02 | disposition home or self-care (01) ==
PROVIDERS: Emergency Provider Emergency Medicine
DX: S63.502A Unspecified sprain of left wrist, initial encounter (principal); M25.532 Pain in left wrist; X58.XXXA Exposure to other specified factors, initial encounter; Y93.9 Activity, unspecified; Y92.9 Unspecified place or not applicable; Y99.0 Civilian activity done for income or pay
CPT/HCPCS: 73110; 73130; 99282; 99283

== ENCOUNTER → 2024-06-20 23:40 | Outpatient (BNV) | payer OTHER, SELFPAY | PROVIDERS: Visit Provider Student in an Organized Health Care Education/Training Program | DX: M25.532 Pain in left wrist (principal) | CPT/HCPCS: 73130 ==